=== PATIENT | female | born 1940 ===

== ENCOUNTER 2019-02-07 12:34 | Emergency (ER) | payer OTHER ==
[~2019-02-07] VITALS: Ht 152.4 cm; Wt 68.0 kg
[2019-02-07] MEDS ORDERED: SYNTHROID100 MCG (13:00)
== END 2019-02-07 21:23 | disposition home or self-care (01) ==
LOC: ER 12:34
DX: K59.09 Other constipation (principal); K57.30 Diverticulosis of large intestine without perforation or abscess without bleeding

== ENCOUNTER → 2019-02-22 | Emergency (ER) | payer OTHER ==
[~2019-02-22] VITALS: Ht 154.9 cm; Wt 68.0 kg
[~2019-02-22] MED LIST: LIPITOR20 MG PO; MIRALAX17 GM PO; SYNTHROID100 MCG
== END | disposition home or self-care (01) ==
LOC: ER 18:14
DX: K59.09 Other constipation (principal); K57.30 Diverticulosis of large intestine without perforation or abscess without bleeding; R10.32 Left lower quadrant pain

== ENCOUNTER 2019-04-11 03:54 | Emergency (ER) | payer OTHER ==
[~2019-04-11] VITALS: Ht 154.9 cm; Wt 68.0 kg
[2019-04-11] MEDS ORDERED: MACRODANTIN100 M1 PO (04:12)
== END 2019-04-11 12:13 | disposition home or self-care (01) ==
LOC: ER 03:54
DX: K29.60 Other gastritis without bleeding (principal); R11.11 Vomiting without nausea; R07.89 Other chest pain; N39.0 Urinary tract infection, site not specified; D72.828 Other elevated white blood cell count; B96.89 Other specified bacterial agents as the cause of diseases classified elsewhere; T37.8X5A Adverse effect of other specified systemic anti-infectives and antiparasitics, initial encounter; Y92.89 Other specified places as the place of occurrence of the external cause